=== PATIENT | male | born 1990 | race Caucasian/White ===

== ENCOUNTER 2017-08-24 13:05 | Emergency (ER) | payer BC ==
[~2017-08-24] VITALS: Ht 177.8 cm; Wt 95.3 kg
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
--- NOTE | 2017-08-24 14:29 | NUR ---
DR MANLEY AT BEDSIDE FOR EVAL.
[2017-08-24] MEDS ORDERED: IBUPROFEN 400 MG TABLET PO ONE (14:30)
[2017-08-24] MEDS ORDERED: IBUPROFEN 400 MG TABLET ONE (14:50)
--- NOTE | 2017-08-24 15:01 | NUR ---
PT TO RADIOLOGY FOR HEAD CT SCAN VIA WHEELCHAIR.
--- NOTE | 2017-08-24 15:40 | NUR ---
MITALI BANDAGE APPLIED TO PT'S R KNEE.
--- NOTE | 2017-08-24 15:46 | NUR ---
Patient discharged to home in stable condition. Written and verbal after care instructions given. Patient verbalizes understanding of instruction.
[2017-08-24 15:48] VITALS: BP 132/84
== END 2017-08-24 15:49 | disposition home or self-care (01) ==
LOC: ER 13:16
DX: S01.01XA Laceration without foreign body of scalp, initial encounter (principal); S05.12XA Contusion of eyeball and orbital tissues, left eye, initial encounter; S89.91XA Unspecified injury of right lower leg, initial encounter; F10.129 Alcohol abuse with intoxication, unspecified; F12.10 Cannabis abuse, uncomplicated; W01.198A Fall on same level from slipping, tripping and stumbling with subsequent striking against other object, initial encounter; Y93.89 Activity, other specified; Y92.89 Other specified places as the place of occurrence of the external cause; Y99.8 Other external cause status
CPT/HCPCS: 70450; 73564; 99284; A4606; Z7610